=== PATIENT | male | born 1960 | race Two or more races ===

== ENCOUNTER 2017-09-01 00:32 | Emergency (ER) | payer MEDICAID, OTHER ==
[~2017-09-01] VITALS: Ht 175.3 cm; Wt 68.5 kg
[2017-09-01] MEDS ORDERED: IBUPROFEN 600 MG TABLET PO ONE (01:15)
[2017-09-01] MEDS ORDERED: IBUPROFEN 600 MG TABLET ONE (01:32)
[2017-09-01] MEDS ORDERED: ACETAMINOPHEN ES 500 MG TABLET ONE (01:34)
[2017-09-01] MEDS ORDERED: ACETAMINOPHEN ES 500 MG TABLET PO ONE (01:45)
--- NOTE | 2017-09-01 02:00 | NUR ---
Patient discharged to home in stable conditon. Written and verbal after care instructions given. Patient verbalizes understanding of instructions.
== END 2017-09-01 02:01 | disposition home or self-care (01) ==
LOC: ER 00:39
DX: S82.892A Other fracture of left lower leg, initial encounter for closed fracture (principal); F17.200 Nicotine dependence, unspecified, uncomplicated; W22.8XXA Striking against or struck by other objects, initial encounter; Y93.89 Activity, other specified; Y92.9 Unspecified place or not applicable; Y99.9 Unspecified external cause status
CPT/HCPCS: 73610; A4663

== ENCOUNTER 2018-07-05 11:52 | Emergency (ER) | payer MEDICAID ==
[~2018-07-05] VITALS: Ht 172.7 cm; Wt 68.0 kg
[2018-07-05] MEDS ORDERED: ATOR10TA PO (12:05)
--- NOTE | 2018-07-05 12:23 | NUR ---
Dr Alvarez at the bedside for MSE.
[2018-07-05] MEDS ORDERED: ACETAMINOPHEN ES 500 MG TABLET ONE (12:41)
[2018-07-05] MEDS ORDERED: ACETAMINOPHEN ES 500 MG TABLET PO ONE (12:45)
--- NOTE | 2018-07-05 12:53 | NUR ---
Pt states he has his own crutches at home and don't need training for them.
[2018-07-05 13:48] VITALS: BP 120/60
== END 2018-07-05 13:50 | disposition home or self-care (01) ==
LOC: ER 11:53
DX: S80.212A Abrasion, left knee, initial encounter (principal); S83.92XA Sprain of unspecified site of left knee, initial encounter; F17.200 Nicotine dependence, unspecified, uncomplicated; W01.0XXA Fall on same level from slipping, tripping and stumbling without subsequent striking against object, initial encounter; Y93.89 Activity, other specified; Y92.89 Other specified places as the place of occurrence of the external cause; Y99.8 Other external cause status
CPT/HCPCS: 29505; 73564; 99284; A4663; A9150